=== PATIENT | male | born 1950 | race Caucasian/White ===

== ENCOUNTER 2020-12-06 11:14 | Outpatient (CLI) | payer MEDICARE | END 2020-12-06 11:15 | disposition home or self-care (01) | LOC: CTENTCT 11:14 | PROVIDERS: ATTEND Physician Assistant | DX: J32.8 Other chronic sinusitis (principal) | CPT/HCPCS: 70486 ==

== ENCOUNTER 2020-12-20 19:00 | Outpatient (CLI) | payer MEDICARE | END 2020-12-20 19:01 | disposition home or self-care (01) | LOC: SLEEPLAB 19:00 | PROVIDERS: ATTEND Otolaryngology Plastic Surgery within the Head & Neck | DX: G47.33 Obstructive sleep apnea (adult) (pediatric) (principal); R06.83 Snoring; G47.31 Primary central sleep apnea | CPT/HCPCS: 95810 ==

== ENCOUNTER 2021-01-13 19:30 | Outpatient (CLI) | payer MEDICARE | END 2021-01-13 19:31 | disposition home or self-care (01) | LOC: SLEEPLAB 19:30 | PROVIDERS: ATTEND Otolaryngology Plastic Surgery within the Head & Neck | DX: G47.33 Obstructive sleep apnea (adult) (pediatric) (principal); R06.83 Snoring; G47.10 Hypersomnia, unspecified; G47.31 Primary central sleep apnea; I48.91 Unspecified atrial fibrillation; E66.9 Obesity, unspecified; Z68.30 Body mass index [BMI] 30.0-30.9, adult | CPT/HCPCS: 95811 ==

== ENCOUNTER 2022-01-10 06:59 | Day surgery (SDC) | payer MEDICARE ==
[2022-01-09 11:55] VITALS: BMI 29.3
[2022-01-10] MEDS ORDERED: Oxymetazoline HCl 0.05% (30 ML BOT) ONE ×2 (07:40→08:32)
[2022-01-10 08:20] LABS: Hemoglobin 12.9 g/dL (14.0-18.0)
[2022-01-10 08:24] LABS: Anion Gap 12 mmol/L (10-20); BUN (Urea Nitrogen) 13 mg/dL (8.4-25.7); Calc. Creatinine Clearance 61 mL/min (70-130); Calcium 8.4 mg/dL (7.8-10.44); Carbon Dioxide 22 mmol/L (23-31); Chloride 107 mmol/L (98-107); Estimated GFR 56; Glucose 141 mg/dL (83-110); Potassium 3.4 mmol/L (3.5-5.1); Sodium 138 mmol/L (136-145)
[2022-01-10] MEDS ORDERED: EPINEPHrine 1 MG/ML AMP ONE (08:32)
[2022-01-10] MEDS ORDERED: Bacitracin Zinc Ointment 30 gm TUBE ONE (08:32)
[2022-01-10] MEDS ORDERED: Lidocaine 1% (PF) 30 ML VIAL ONE (08:32)
[2022-01-10] MEDS ORDERED: fentaNYL Citrate/PF 100 MCG/2 ML SYRINGE ONE (08:43)
[2022-01-10] MEDS ORDERED: Propofol 1,000 MG/100 ML VIAL IV ONE (08:53)
[2022-01-10] MEDS ORDERED: Ondansetron PF 4 MG/2 ML Vial ONE (08:53)
[2022-01-10] MEDS ORDERED: Dexamethasone 20 MG/5 ML VIAL ONE (08:53)
== END 2022-01-10 10:58 | disposition home or self-care (01) ==
LOC: SDC 06:59
PROVIDERS: ATTEND Otolaryngology Plastic Surgery within the Head & Neck
PROC: 09SM0ZZ Reposition Nasal Septum, Open Approach (ICD-10-PCS; principal; 2022-01-10)
PROC: 095L0ZZ Destruction of Nasal Turbinate, Open Approach (ICD-10-PCS; 2022-01-10)
DX: J34.2 Deviated nasal septum (principal); J34.3 Hypertrophy of nasal turbinates; J34.89 Other specified disorders of nose and nasal sinuses; G47.33 Obstructive sleep apnea (adult) (pediatric); J45.909 Unspecified asthma, uncomplicated; Z79.01 Long term (current) use of anticoagulants; Z79.82 Long term (current) use of aspirin; Z79.899 Other long term (current) drug therapy; Z95.1 Presence of aortocoronary bypass graft
CPT/HCPCS: 80048; 85014; 85018; 93005; 93010; J0171; J1100; J2001; J2405; J2704; J7620